=== PATIENT | female | born 1970 | race Caucasian/White ===

== ENCOUNTER 2021-07-03 11:40 | Emergency (ER) | payer OTHER, SELFPAY ==
--- NOTE | ~2021-07-03 | XR_ITS ---
EXAMINATION: RIGHT HAND CLINICAL INFORMATION: Fall with pain COMPARISON: None TECHNIQUE: 4 views of the right hand and wrist FINDINGS: There is severe degenerative change involving the first carpal metacarpal joint with narrowing of the joint space and articular irregularity and prominent spurring as well as subchondral cyst formation. There is prominent degenerative change of the second and fourth distal interphalangeal joints with loss of joint space and articular irregularity. There is soft tissue swelling seen involving the second and third proximal phalanges and second distal interphalangeal joint. There is evidence of an old fracture dorsal base of the third distal phalanx. This could represent a healing fracture.. XR/XR hand wrist RT IMPRESSION: Severe degenerative change first carpometacarpal joint, second distal interphalangeal joint, and fourth distal interphalangeal joint. Dorsal base fracture third distal phalanx.
[2021-07-03 11:59] VITALS: BP 137/73; PULSE 80; RESP 18; TEMP 36.9; O2SAT 97; BMI 26.4
--- NOTE | 2021-07-03 12:48 | ED.EXTPRO ---
HPI - Extremity Problem General Chief complaint: Extremity Injury, Upper Stated complaint: numbness in hand swelling Time Seen by Provider: 07/03/21 12:03 Source: patient Mode of arrival: ambulatory Limitations: no limitations History of Present Illness HPI Narrative: 51-year-old female with a history of osteoarthritis here with reports of pain, swelling, stiffness to the right hand over the 1st through 3rd digit for several months. Patient tells me she did have a remote injury in April when she fell striking the right hand. She feels since then that she has had increasing pain, swelling and stiffness to the hand. The stiffness and swelling seems worst in the morning when she wakes up and then improves with movement. She has pain throughout the day. Sometimes she feels like she has pins and needles sensation and the digits. No warmth, redness, fevers or chills. Patient tells me she was diagnosed with osteoarthritis years ago but does not currently see any doctor for this and does not have a primary care doctor. Related Data Previous Rx's Medication Instructions Recorded naproxen 500 mg tablet 500 mg PO BID PRN #30 tab 07/03/21 prednisone 20 mg tablet 40 mg PO DAILY #10 tab 07/03/21 Allergies Allergy/AdvReac Type Severity Reaction Status Date / Time No Known Allergies Allergy Verified 07/03/21 12:01 Review of Systems Review of Systems: Yes all other systems are reviewed and are negative Constitutional: Constitutional: Reports no additional constitutional complaints, Denies body ache(s), Denies chills, Denies fever(s), Denies headache(s) and Denies weakness Eyes: Eyes: Reports no additional eye complaints and Denies change in vision ENT: Reports system reviewed and no additional complaints, except as documented, Denies dizziness, Denies headache(s), Denies nasal congestion, Denies nasal discharge and Denies neck pain Cardiovascular: Cardiovascular: Reports no additional cardiovascular complaints, Denies chest pain, Denies leg edema and Denies dyspnea Respiratory: Respiratory: Reports no additional respiratory complaints, Denies cough and Denies dyspnea Gastrointestinal: Gastrointestinal: Reports no additional gastrointestinal complaints, Denies abdominal pain, Denies diarrhea, Denies nausea and Denies vomiting Genitourinary: Genitourinary: Reports no additional female genitourinary complaints and Denies urinary incontinence Musculoskeletal: Musculoskeletal: Reports no additional musculoskeletal complaints, Denies back pain, Reports arthralgias, Reports joint swelling, Denies neck pain, Reports numbness and Reports tingling Integumentary/Breasts: Skin/Breast: Reports system reviewed and no additional complaints, except as docu and Denies rash Neurologic: Reports system reviewed and no additional complaints, except as documented, Denies Abnormal speech present, Denies dizziness, Denies headache(s), Reports numbness, Reports tingling and Denies weakness PMFSH Past Medical History Attestation statement: The following information was validated with the patient. Source: old records reviewed and nursing notes reviewed Medical History Osteoarthritis Social History Social History Advance Directives: No Advance Directives Information Provided: No Patient : No Physical Exam Vital Signs: Vital Signs: Last Vital Signs Temp 98.5 F 07/03/21 11:59 Pulse 80 07/03/21 11:59 Resp 18 07/03/21 11:59 BP 137/73 07/03/21 11:59 Pulse Ox 97 07/03/21 11:59 BMI result Body Mass Index 26.4 Const: General: cooperative, healthy appearing, comfortable and no acute distress Orientation/consciousness: patient oriented x3 Limitations: no limitations HENMT: Head: Yes normal to inspection Ears: hearing grossly normal bilaterally General nose exam: Normal external nose present Face and sinus: Yes normal facial exam Mouth: Normal oral and palatal mucosa present Throat: Yes posterior oropharynx normal Eyes: General: appearance normal, both eyes and all related structures Pupils: Equal, round and reactive pupils present Neck: Neck: Yes normal visual inspection Chest: Chest palpation & inspection: normal inspection of the chest Resp: Effort & Inspection: normal respiratory effort Auscultation: clear to auscultation bilaterally Cardio: Rate: regular rate Rhythm: regular rhythm Peripheral pulses: Peripheral pulses 2+ throughout GI: Inspection: Yes normal to inspection Palpation (GI): Soft to palpation and nontender Auscultation: normal bowel sounds Back/Spine/Pelvis: Thoracic/Lumbar Spine: thoracic and lumbar spine normal to inspection Skin: General skin exam: no rashes or lesions noted Neuro: General: patient oriented x3, no focal motor deficits and normal sensation to monofilament Cranial nerves: Yes Equal, round and reactive pupils present Cognition (Neuro): normal cognition Speech: No Abnormal speech present Gait exam (Neuro): Normal gait present Motor exam (neuro): 5/5 motor strength present throughout Extrem: Other: On exam the patient has swelling noted over the 1st, 2nd, 3rd digit with some pain and stiffness. There is more focal swelling noted around the MCP joints of the right hand. Sensation is intact. Normal cap refill. Neurovascular intact distally to the swelling and pain Negative Phalen, negative Tinel, negative Rosana General: Yes normal to inspection Course Course Course Narrative: 51-year-old female right-hand dominant here with reports of right hand pain, swelling, intermittent paresthesias, stiffness for the last few months. Patient did have remote injury. Will check x-rays 1345 IMPRESSION: Severe degenerative change first carpometacarpal joint, second distal interphalangeal joint, and fourth distal interphalangeal joint. ? Dorsal base fracture third distal phalanx.? -patient likely has underlying osteoarthritis. She tells me she has had this for several years. She has never been worked up for rheumatoid arthritis. I did recommend she follow up with primary care doctor for further workup. Will give her a brief course of prednisone an NSAID to help with symptoms. She reports intermittent paresthesias but on exam the patient has a normal sensation with no deficit. She also has what appears to be an old fracture over the 3rd distal phalanx. This was discussed with her. She may splint for comfort as needed. Reviewed worrisome signs and symptoms of when to return to the emergency department. Comfortable discharge home. MDM - Extremity (Nontraumatic) Medical Records Attestation: I reviewed the patient's medical records. Lab Data Attestation: I reviewed the patient's lab results. Imaging Data hand/wrist xray: Attestation: I personally reviewed and interpreted this imaging study as follows: Radiologist's impression: IMPRESSION: Severe degenerative change first carpometacarpal joint, second distal interphalangeal joint, and fourth distal interphalangeal joint. ? Dorsal base fracture third distal phalanx.? Discharge Plan Discharge Clinical Impression: Osteoarthritis Distal phalanx or phalanges, closed fracture Qualifiers: Encounter type: initial encounter Finger: middle finger Fracture alignment: nondisplaced Laterality: right Qualified Code(s): S62.662A - Nondisplaced fracture of distal phalanx of right middle finger, initial encounter for closed fracture Patient Disposition: Home, Self-Care Instructions: Finger Fracture (ED), Osteoarthritis (ED) Additional Instructions: Heat or ice Gentle stretching Follow-up with primary care doctor see may have additional testing for rheumatoid arthritis Prescriptions: New prednisone 20 mg tablet 40 mg PO DAILY Qty: 10 RF: 0 naproxen 500 mg tablet 500 mg PO BID PRN (Reason: pain) Qty: 30 RF: 0 Referrals: Physician,None [Primary Care Provider] - 2 days Interventions: ED Discharge Assessment Last Done: 07/03/21 13:38 Discharge Date/Time: 07/03/21 13:39
== END 2021-07-03 13:39 | disposition home or self-care (01) ==
PROVIDERS: Emergency Provider Emergency Medicine
DX: S62.662A Nondisplaced fracture of distal phalanx of right middle finger, initial encounter for closed fracture (principal); X58.XXXA Exposure to other specified factors, initial encounter; M19.041 Primary osteoarthritis, right hand; M79.641 Pain in right hand; Y93.9 Activity, unspecified; Y92.9 Unspecified place or not applicable; Y99.9 Unspecified external cause status
CPT/HCPCS: 73110; 73130; 99283

== ENCOUNTER 2021-09-15 15:00 | Outpatient (REF) | payer OTHER, SELFPAY ==
--- NOTE | ~2021-09-15 | XR_ITS ---
EXAMINATION: XR HAND, RIGHT XR HAND, LEFT CLINICAL INFORMATION: Osteoarthritis, pain COMPARISON: Radiographs right hand and wrist 07/03/2021, radiographs left hand 02/12/2013. TECHNIQUE: Each hand is imaged in 3 views for a total of 6 views. FINDINGS: Right: Normal bony mineralization. No fracture or dislocation. Slight negative ulnar variance. Prominent osteoarthritic changes first carpometacarpal joint with osteophytes and subchondral cysts. The MCP and PIP joints are unremarkable. There are prominent osteoarthritic changes index finger DIP joint. The fourth finger DIP joint has chronic central erosions suggesting erosive osteoarthritis. Left: Normal bony mineralization. No fracture or dislocation. Ulnar variance is within neutral. Prominent osteoarthritic changes first carpometacarpal joint with subchondral cysts. The MCP and PIP joints are unremarkable. There are prominent osteoarthritic changes involving the DIP joints of the second through fifth fingers. No definite erosions. XR/XR hand RT min 3V IMPRESSION: -Bilateral prominent osteoarthritis 1st CMC with probable subchondral cysts rather than erosions. -Bilateral osteoarthritis DIP joints, greater on left. Suspect erosive osteoarthritis right 4th DIP.
--- NOTE | ~2021-09-15 | XR_ITS ---
EXAMINATION: XR HAND, RIGHT XR HAND, LEFT CLINICAL INFORMATION: Osteoarthritis, pain COMPARISON: Radiographs right hand and wrist 07/03/2021, radiographs left hand 02/12/2013. TECHNIQUE: Each hand is imaged in 3 views for a total of 6 views. FINDINGS: Right: Normal bony mineralization. No fracture or dislocation. Slight negative ulnar variance. Prominent osteoarthritic changes first carpometacarpal joint with osteophytes and subchondral cysts. The MCP and PIP joints are unremarkable. There are prominent osteoarthritic changes index finger DIP joint. The fourth finger DIP joint has chronic central erosions suggesting erosive osteoarthritis. Left: Normal bony mineralization. No fracture or dislocation. Ulnar variance is within neutral. Prominent osteoarthritic changes first carpometacarpal joint with subchondral cysts. The MCP and PIP joints are unremarkable. There are prominent osteoarthritic changes involving the DIP joints of the second through fifth fingers. No definite erosions. XR/XR hand LT min 3V IMPRESSION: -Bilateral prominent osteoarthritis 1st CMC with probable subchondral cysts rather than erosions. -Bilateral osteoarthritis DIP joints, greater on left. Suspect erosive osteoarthritis right 4th DIP.
[2021-09-15 15:40] LABS: MANUAL DIFF FLAG NO
[2021-09-15 15:53] LABS: Basophils Absolute Auto 0.1 X10*3/uL (0.0-0.2); Basophils Percent Auto 0.6 % (0-2); Eosinophils Absolute Auto 0.2 X10*3/uL (0.0-0.4); Eosinophils Percent Auto 2.2 % (0-4); Hematocrit 39.8 % (37.0-47.0); Imm Gran Abs Auto 0.03 X10*3/uL (0.00-0.03); Imm Gran Pct Auto 0.4 % (0.0-0.4); Lymphocytes Absolute Auto 2.1 X10*3/uL (1.2-4.9); Lymphocytes Percent Auto 24.8 % (20-40); Mean Corpuscular HGB Conc 32.7 g/dl (31.0-35.0); Mean Corpuscular Hemoglobin 29.7 pg (27.0-33.0); Mean Corpuscular Volume 90.9 fL (80.0-98.0); Mean Platelet Volume 9.3 fL (9.4-12.3); Monocytes Absolute Auto 0.7 X10*3/uL (0.1-1.2); Monocytes Percent Auto 7.9 % (2-11); Neutrophils Absolute Auto 5.3 x10*3/uL (2.0-8.3); Neutrophils Percent Auto 64.1 % (45-73); Platelet Count 346 X10*3/uL (160-400); Red Blood Count 4.38 X10*6/uL (4.20-5.50); White Blood Count 8.3 X10*3/uL (4.8-10.8)
[2021-09-15 16:30] LABS: Alanine Aminotransferase 12 U/L (0-31); Albumin Level 3.9 g/dL (3.5-5.0); Alkaline Phosphatase 58 U/L (39-117); Anion Gap 12 (12-20); Aspartate Amino Transferase 15 U/L (5-31); Bilirubin Total 0.3 mg/dL (0.0-1.0); Blood Urea Nitrogen 12 mg/dL (9-16); Calcium 9.1 mg/dL (8.4-10.2); Carbon Dioxide 25 mmol/L (22-29); Chloride 105 mmol/L (96-108); Cholesterol 212 mg/dL; Estimated Glomerular Filt Rate > 60; Glucose Random 87 mg/dL (60-115); HDL Cholesterol 58 mg/dL; LDL Cholesterol Calculated 137 mg/dl; Potassium 4.1 mmol/L (3.3-5.1); Sodium 138 mmol/L (135-145); Total Protein 6.6 g/dL (6.5-8.0); Triglycerides 85 mg/dL
[2021-09-15 16:35] LABS: Erythrocyte Sedimentation Rate 13 MM/HR (0-20)
[2021-09-15 16:38] LABS: Rheumatoid Factor < 15.0 IU/mL (<15.0)
[2021-09-15 16:46] LABS: Thyroid Stimulating Hormone 1.59 uIU/mL (0.32-4.0)
== END 2021-09-15 15:01 | disposition home or self-care (01) ==
LOC: HO.XRAY 15:00
PROVIDERS: PCP Internal Medicine; Visit Provider Internal Medicine
DX: G56.01 Carpal tunnel syndrome, right upper limb (principal); I10 Essential (primary) hypertension; M19.041 Primary osteoarthritis, right hand; M19.042 Primary osteoarthritis, left hand
CPT/HCPCS: 36415; 73130; 80053; 80061; 84443; 85025; 85652; 86431

== ENCOUNTER 2021-11-05 09:48 | Outpatient (REF) | payer OTHER, SELFPAY ==
--- NOTE | 2021-11-05 09:53 | EMG_ITS ---
Right median and ulnar motor and sensory studies were performed. Right radial sensory study was performed and paraspinal muscles were tested. IMPRESSION: 1. 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 2. Mild right Je Bryant anastomosis and normal variant. MD WHITNEY Nassar/NAVJOT / [id number]
== END 2021-11-05 09:49 | disposition home or self-care (01) ==
LOC: HO.NEURO 09:48
PROVIDERS: Visit Provider Internal Medicine
DX: G56.01 Carpal tunnel syndrome, right upper limb (principal)
CPT/HCPCS: 95886; 95909

== ENCOUNTER → 2021-12-29 13:53 | Outpatient (BNVA) | payer OTHER, SELFPAY | PROVIDERS: PCP Internal Medicine; Visit Provider Orthopaedic Surgery | DX: G56.03 Carpal tunnel syndrome, bilateral upper limbs (principal); M79.89 Other specified soft tissue disorders | CPT/HCPCS: 99212 ==

== ENCOUNTER 2022-01-25 11:04 | Day surgery (SDC) | payer OTHER, SELFPAY ==
--- NOTE | 2022-01-25 08:14 | W.PM.OPN ---
Operative Note Operative Note Date of Service: 01/25/22 Narrative: Preop diagnosis: 1. right Carpal tunnel syndrome Postop diagnosis: same Procedure: 1. right Carpal tunnel release Surgeon: Angeles Garcia MD Anesthesia: local block using 1% lidocaine with epinephrine Findings: Thickened transverse carpal ligament. EBL: Less than 5 mL Specimens: None Complications: None Disposition: Brought to recovery room in stable condition Plan: Follow-up for 10-14 days for wound check and suture removal Indications: The patient is 51 years old, with right carpal tunnel syndrome that has been unresponsive to nonoperative management. The risks and benefits of operative treatment including but not limited to risk of damage to blood vessels, nerves, tendons, infection, persistent pain, persistent symptoms, or possible need for additional surgery were discussed with the patient and the patient wishes to proceed with surgery. Procedure: Once consent was obtained a local block was performed using a combination of 1% lidocaine with epinephrine. The patient was then brought back to the operating suite and placed on the operative table in supine position. A tourniquet was applied to the proximal aspect of the right upper extremity and the limb was prepped and draped in a standard surgical fashion. Once assured that we had a good block, a 1.5 cm longitudinal incision was made centered over the carpal tunnel. The incision was made through the skin to the subcutaneous tissues using a #15 blade. Dissection was made down to the level of the transverse carpal ligament with care being taken to protect the palmar cutaneous nerve. Once the transverse carpal ligament was clearly visualized, a longitudinal incision was made in the transverse carpal ligament 1st using a #15 blade, then using tenotomy scissors under direct visualization. Care was taken to look for and protect the motor branch of the median nerve when seen in this area. Once satisfied with our carpal tunnel release the wound was copiously irrigated with normal saline and hemostasis was obtained with a brief period of local pressure. The skin edges were reapproximated with some 5.0 nylon suture material and a sterile dressing was applied. The patient appears to have tolerated the procedure well and with no complications. All digits were well vascularized at the conclusion of the case.
[2022-01-25 11:16] VITALS: BMI 28.3
[2022-01-25 11:20] VITALS: BP 136/81; PULSE 82; RESP 16; TEMP 36.8; O2SAT 97
--- NOTE | 2022-01-25 13:15 | MHC.SHP ---
Pre-Procedural Eval Section A Date of Service: 01/25/22 The patient is an INPATIENT: No The History & Physical has been completed within 30 days and I have reviewed it.: Yes Section B Chief Complaint: CT Allergies: Allergies Allergy/AdvReac Type Severity Reaction Status Date / Time No Known Allergies Allergy Verified 07/03/21 12:01 Plan I have reviewed the history and physical and performed a pertinent physical examination on my patient. No changes have occurred unless specified.
[2022-01-25 13:44] VITALS: BP 127/74; PULSE 87; RESP 18; TEMP 36.6; O2SAT 97
== END 2022-01-25 14:05 | disposition home or self-care (01) ==
PROVIDERS: PCP Internal Medicine; Visit Provider Orthopaedic Surgery
PROC: (CPT 64721; principal; 2022-01-25 12:20)
DX: G56.01 Carpal tunnel syndrome, right upper limb (principal); R20.0 Anesthesia of skin; M79.89 Other specified soft tissue disorders
CPT/HCPCS: 64721; J0171

== ENCOUNTER → 2022-02-09 12:27 | Outpatient (BNVA) | payer OTHER, SELFPAY | PROVIDERS: PCP Internal Medicine; Visit Provider Orthopaedic Surgery | DX: M79.89 Other specified soft tissue disorders (principal); G56.03 Carpal tunnel syndrome, bilateral upper limbs | CPT/HCPCS: 99212 ==

== ENCOUNTER 2022-03-22 11:56 | Day surgery (SDC) | payer OTHER, SELFPAY ==
--- NOTE | 2022-03-22 10:20 | W.PM.OPN ---
Operative Note Operative Note Date of Service: 03/22/22 Narrative: Preop diagnosis: 1. left Carpal tunnel syndrome Postop diagnosis: same Procedure: 1. left Carpal tunnel release Surgeon: Angeles Garcia MD Anesthesia: local block using 1% lidocaine with epinephrine Findings: Thickened transverse carpal ligament. EBL: Less than 5 mL Specimens: None Complications: None Disposition: Brought to recovery room in stable condition Plan: Follow-up for 10-14 days for wound check and suture removal Indications: The patient is 51 years old, with left carpal tunnel syndrome that has been unresponsive to nonoperative management. The risks and benefits of operative treatment including but not limited to risk of damage to blood vessels, nerves, tendons, infection, persistent pain, persistent symptoms, or possible need for additional surgery were discussed with the patient and the patient wishes to proceed with surgery. Procedure: Once consent was obtained a local block was performed using a combination of 1% lidocaine with epinephrine. The patient was then brought back to the operating suite and placed on the operative table in supine position. A tourniquet was applied to the proximal aspect of the left upper extremity and the limb was prepped and draped in a standard surgical fashion. Once assured that we had a good block, a 2.0 cm longitudinal incision was made centered over the carpal tunnel. The incision was made through the skin to the subcutaneous tissues using a #15 blade. Dissection was made down to the level of the transverse carpal ligament with care being taken to protect the palmar cutaneous nerve. Once the transverse carpal ligament was clearly visualized, a longitudinal incision was made in the transverse carpal ligament 1st using a #15 blade, then using tenotomy scissors under direct visualization. Care was taken to look for and protect the motor branch of the median nerve when seen in this area. Once satisfied with our carpal tunnel release the wound was copiously irrigated with normal saline and hemostasis was obtained with a brief period of local pressure. The skin edges were reapproximated with some 5.0 nylon suture material and a sterile dressing was applied. The patient appears to have tolerated the procedure well and with no complications. All digits were well vascularized at the conclusion of the case.
[2022-03-22 12:35] VITALS: BP 153/76; PULSE 62; RESP 16; TEMP 36.2; O2SAT 98; BMI 27.3
--- NOTE | 2022-03-22 12:58 | MHC.SHP ---
Pre-Procedural Eval Section A Date of Service: 03/22/22 The patient is an INPATIENT: No Changes since office visit: No Cold of Flu in the past 2 weeks, No New Medical Problems, No Changes in Medication and No Patient answered all questions The History & Physical has been completed within 30 days and I have reviewed it.: Yes Section B Chief Complaint: carpal tunnel Allergies: Allergies Allergy/AdvReac Type Severity Reaction Status Date / Time No Known Allergies Allergy Verified 03/16/22 14:41 Plan I have reviewed the history and physical and performed a pertinent physical examination on my patient. No changes have occurred unless specified.
--- NOTE | 2022-03-22 15:55 | PC.NURSE ---
POST OP VITAL SIGNS; bp 156/86, 71, 98% RA, R 16
== END 2022-03-22 14:50 ==
LOC: HO.SSS 11:56
PROVIDERS: PCP Internal Medicine; Visit Provider Orthopaedic Surgery
PROC: (CPT 64721; principal; 2022-03-22 13:20)
DX: G56.02 Carpal tunnel syndrome, left upper limb (principal)
CPT/HCPCS: 64721; J0171

== ENCOUNTER 2022-09-17 14:12 | Outpatient (REF) | payer OTHER, SELFPAY ==
--- NOTE | ~2022-09-17 | MM_ITS ---
EXAMINATION: MM SCREENING DIGITAL BREAST TOMOSYNTHESIS, BILATERAL CLINICAL INFORMATION: Screening. Asymptomatic. No known family history breast cancer. The lifetime risk of breast cancer based on the Tyrer-Cuzick Model is 7%. COMPARISON: Mammography: 11/20/2014, 05/21/2014, 11/16/2013 (baseline), left breast ultrasound 11/20/2014. TECHNIQUE: Digital breast tomosynthesis is performed in both the craniocaudal and mediolateral oblique views along with computer-aided detection (CAD). Synthesized 2D images are generated from the tomosynthesis. FINDINGS: The breasts are heterogeneously dense, which may obscure small masses (ACR BI-RADS breast composition Category c). There is a fibrocystic parenchymal pattern with scattered bilateral small round and oval waxing and waning nodularity. There is no significant mass or architectural abnormality or developing density. There are scattered bilateral punctate similar appearing round calcifications. The axilla are unremarkable. The skin contours are smooth. MM/MM tomosynthesis screening BI IMPRESSION: No mammographic evidence of malignancy. ASSESSMENT: BI-RADS 2: Benign RECOMMENDATION: Routine annual mammography screening. This patient's information was entered into a reminder system with a target due date for their next mammogram.
== END 2022-09-17 14:13 | disposition home or self-care (01) ==
LOC: HO.MAMMO 14:12
PROVIDERS: PCP Internal Medicine; Visit Provider Internal Medicine
DX: Z12.31 Encounter for screening mammogram for malignant neoplasm of breast (principal)
CPT/HCPCS: 77063; 77067

== ENCOUNTER 2023-09-23 13:16 | Outpatient (REF) | payer OTHER, SELFPAY ==
--- NOTE | ~2023-09-23 | MM_ITS ---
EXAMINATION: MM SCREENING DIGITAL BREAST TOMOSYNTHESIS, BILATERAL CLINICAL INFORMATION: Screening. Asymptomatic. COMPARISON: Mammography: This study is compared with prior exams dating back to 2015. TECHNIQUE: Digital breast tomosynthesis is performed in both the craniocaudal and mediolateral oblique views along with computer-aided detection (CAD). Synthesized 2D images are generated from the tomosynthesis. FINDINGS: The breasts are heterogeneously dense, which may obscure small masses (ACR BI-RADS breast composition Category c). In the upper outer quadrant of the right breast, in the anterior depth, there are 2 adjacent focal asymmetries. Additional mammographic and targeted sonographic imaging of these findings is advised. There are few, bilateral benign calcifications. In the left breast, there are no significant masses, abnormal calcifications, or other abnormalities. MM/MM tomosynthesis screening BI IMPRESSION: 2 focal asymmetries of the right breast warrant additional mammographic and targeted sonographic imaging. No mammographic signs of malignancy left breast. ASSESSMENT: BI-RADS BI-RADS 0 - Incomplete: Needs additional Imaging. RECOMMENDATION: 1. Additional views of the ...... 2. Targeted ultrasound if warranted after review of the additional views. 3. Radiology department staff will contact the patient for additional imaging. BI-RADS 0 Additional Imaging required This examination should not preclude the clinical evaluation of a suspicious palpable abnormality. This patient's information was entered into a reminder system with a target due date for their next mammogram.
== END 2023-09-23 13:17 | disposition home or self-care (01) ==
LOC: HO.MAMMO 13:16
PROVIDERS: PCP Internal Medicine; Visit Provider Internal Medicine
DX: Z12.31 Encounter for screening mammogram for malignant neoplasm of breast (principal)
CPT/HCPCS: 77063; 77067

== ENCOUNTER → 2023-09-23 13:30 | Outpatient (BNV) | payer OTHER, SELFPAY | PROVIDERS: PCP Internal Medicine; Visit Provider Radiology Diagnostic Radiology | DX: Z12.31 Encounter for screening mammogram for malignant neoplasm of breast (principal) | CPT/HCPCS: 77063; 77067 ==

== ENCOUNTER 2023-11-01 13:52 | Outpatient (REF) | payer OTHER, SELFPAY ==
--- NOTE | ~2023-11-01 | US_ITS ---
EXAMINATION: MM DIAGNOSTIC DIGITAL BREAST TOMOSYNTHESIS, RIGHT US BREAST LIMITED, RIGHT MAMMOGRAPHY: CLINICAL INFORMATION: Diagnostic to evaluate 2 adjacent focal asymmetries in the upper outer quadrant of the right breast, anterior depth. COMPARISON: Mammography: 09/23/2023, 09/17/2022, 11/20/2014, and dating back to 11/16/2013. TECHNIQUE: Digital breast tomosynthesis is performed in the following views: Full-field digital 3-D right mediolateral view, as well as 3-D digital spot compression right CC and MLO views. Computer-aided diagnosis was used for this study. FINDINGS: The breasts are heterogeneously dense, which may obscure small masses (ACR BI-RADS breast composition Category c). Diagnostic views demonstrate the focal asymmetries in the right breast upper outer quadrant, anterior one third, represent oval circumscribed masses, the largest at the 11:00 axis measuring up to 1.5 cm in length. There are several additional smaller circumscribed masses in the upper outer right breast, suspicious for numerous cysts. An apparent region of architectural distortion in the superior right breast on the MLO view and lateral right breast on the CC view effaces on diagnostic views and is consistent with superimposition artifact of normal overlapping breast tissue. A few scattered tiny punctate calcifications are present, none which appear grouped or aggressive in nature. No skin or axillary abnormalities identified. ULTRASOUND: CLINICAL INFORMATION: Evaluate oval masses in the upper outer right breast anterior to middle one third. COMPARISON: No prior right breast ultrasound. Mammography dated 09/23/2023. TECHNIQUE: Targeted sonographic evaluation was performed using a high frequency linear transducer. Attention was given to the upper outer quadrant of the right breast. Selected archived documentation. FINDINGS: RIGHT BREAST: -Examination demonstrates heterogeneously dense fibroglandular tissue. There is a bilobed simple cyst at the 11:00 axis, 2 cm from the nipple, measuring 1.3 x 1.4 x 0.9 cm, correlating with the anterior inferior mammographic finding at 11:00. -In addition, there is a 5 mm immediately adjacent simple cyst just superior to the larger 11:00 cyst. -In addition, at the 10:00 axis, 3 cm from the nipple, there is a third simple cyst measuring 0.8 x 0.5 x 1.0 cm, correlating with the 10:00 abnormality on mammography. These findings are benign and no further follow-up is recommended. US/US breast RT limited mamm only IMPRESSION: There are no findings suspicious for malignancy in the right breast. There are benign cysts x3 in the upper outer right breast, the largest at 11:00 measuring 1.4 cm. These require no further follow-up. Recommend the patient return to routine annual screening. OVERALL ASSESSMENT: Mammography: BI-RADS 2 - Benign Findings Ultrasound: BI-RADS 2 - Benign Findings RECOMMENDATION: 1 year F/U Results were provided to the patient at time of visit by the technologist. This patient's information was entered into a reminder system with a target due date for their next mammogram.
== END 2023-11-01 13:53 | disposition home or self-care (01) ==
LOC: HO.MAMMO 13:52
PROVIDERS: PCP Internal Medicine; Visit Provider Internal Medicine
DX: N64.89 Other specified disorders of breast (principal)
CPT/HCPCS: 76642; 77061; 77065

== ENCOUNTER → 2023-11-01 14:00 | Outpatient (BNV) | payer OTHER, SELFPAY | PROVIDERS: PCP Internal Medicine; Visit Provider Radiology Diagnostic Radiology | DX: R92.8 Other abnormal and inconclusive findings on diagnostic imaging of breast (principal) | CPT/HCPCS: 76642; 77061; 77065 ==